=== PATIENT | male | born 1990 | race Caucasian/White ===

== ENCOUNTER 2017-05-11 14:33 | Emergency (ER) | payer MEDICAID ==
[~2017-05-11] VITALS: Ht 175.3 cm; Wt 77.0 kg
[2017-05-11] MEDS ORDERED: MIRT15 PO (14:42)
[2017-05-11 15:10] VITALS: BP 128/81
[2017-05-11] MEDS ORDERED: GuaiFENesin/D-METHORPHAN [SUGAR-FREE] 200-20MG/10 ML SYRUP UDCUP PO ONE (16:00)
[2017-05-11] MEDS ORDERED: IBUPROFEN 800 MG TABLET PO ONE (16:00)
== END 2017-05-11 16:12 | disposition home or self-care (01) ==
LOC: EMS 14:43
DX: K04.7 Periapical abscess without sinus (principal); J06.9 Acute upper respiratory infection, unspecified; R51 Headache; F17.210 Nicotine dependence, cigarettes, uncomplicated
CPT/HCPCS: 99283